=== PATIENT | male | born 1960 | race Caucasian/White ===

== ENCOUNTER → 2023-10-05 15:29 | Outpatient (REF) | payer SELFPAY | LOC: HWRAD 15:29 | PROVIDERS: ATTENDING PHYSICIAN Internal Medicine Cardiovascular Disease; FAMILY PHYSICIAN Family Medicine | DX: I10 Essential (primary) hypertension (principal); I34.0 Nonrheumatic mitral (valve) insufficiency | CPT/HCPCS: 75571 ==

== ENCOUNTER → 2023-12-17 12:37 | Outpatient (REF) | payer OTHER, SELFPAY | LOC: RAD 12:37 | PROVIDERS: ATTENDING PHYSICIAN Nurse Practitioner Family | DX: R05.3 Chronic cough (principal) | CPT/HCPCS: 71046 ==

== ENCOUNTER → 2024-05-10 15:00 | Outpatient (REF) | payer OTHER, SELFPAY | LOC: HWRCS 15:00 | PROVIDERS: ATTENDING PHYSICIAN Internal Medicine Cardiovascular Disease; FAMILY PHYSICIAN Family Medicine | DX: I10 Essential (primary) hypertension (principal); I34.0 Nonrheumatic mitral (valve) insufficiency | CPT/HCPCS: 93306 ==

== ENCOUNTER 2024-05-21 00:23 | Emergency (ER) | payer OTHER, SELFPAY ==
[2024-05-21 00:25] VITALS: BMI 26.4
[2024-05-21 00:32] VITALS: BP 101/68
[2024-05-21 00:47] LABS: % Basophils 0.8 % (0-2); % Eosinophils 2.5 % (0-6); % Immature Granulocytes 0.3 % (0-0.5); % Lymphocytes 52.2 % (20.5-51.1); % Monocytes 7.6 % (1.7-9.3); % Neutrophils 36.6 % (42.2-75.2); Absolute Basophils 0.1 10^3/uL (0-0.2); Absolute Eosinophils 0.3 10^3/uL (0-0.7); Absolute Lymphocytes 5.4 10^3/uL (1.2-3.4); Absolute Monocytes 0.8 10^3/uL (0.1-0.6); Absolute Neutrophils 3.8 10^3/uL (1.4-6.5); Hematocrit 39.2 % (39.0-52.0); Hemoglobin 13.6 g/dL (13.0-18.0); Mean Corp Hgb Conc. 34.7 g/dL (33.0-37.0); Mean Corpuscular Hgb 31.3 pg (27.0-31.0); Mean Corpuscular Volume 90.1 fL (80.0-94.0); Mean Platelet Volume 10.6 fL (7.4-10.4); Nucleated Red Blood Cells % 0 % (-); Platelet Count 230 10^3/uL (130-400); Red Blood Cell Count 4.35 10^6/uL (4.70-6.10); Red Cell Dist. Width 12.5 % (11.5-14.5); White Blood Cell Count 10.3 10^3/uL (4.8-10.8)
[2024-05-21 01:00] VITALS: BP 114/73
[2024-05-21 01:05] LABS: ALT (SGPT) 28 U/L (0-50); AST (SGOT) 33 U/L (17-59); Albumin 4.3 g/dl (3.5-5.0); Alkaline Phosphatase 55 U/L (38-126); Blood Urea Nitrogen 21 mg/dl (9-20); Calcium 9.2 mg/dl (8.4-10.2); Carbon Dioxide 24 mmol/L (22-30); Chloride 103 mmol/L (98-107); Estimated Creatinine Clearance 68 ml/min; Glucose 115 mg/dl (70-99); Potassium 3.5 mmol/L (3.5-5.1); Sodium 143 mmol/L (135-145); Total Bilirubin 0.2 mg/dl (0.2-1.3); Total Protein 6.5 g/dl (6.3-8.2); eGFR > 60.00
--- NOTE | 2024-05-21 01:09 | ED.GENMED ---
History of Present Illness
General
Chief Complaint: Fainting/Passed Out
Source: patient
Exam Limitations: none
Time Seen by Provider: 05/21/24 00:49
History of Present Illness
History of Present Illness:
63-year-old male presents via EMS from patient's friend's house. Patient was sitting at the table enjoying time with friends having several glasses of wine and smoking marijuana. He noticed his vision started to tunnel. He put his head down on
the table and was unresponsive for short period time. When he awoke he was pale and diaphoretic. There was no preceding chest pain or shortness of breath. He feels very dry at this point. He was orthostatic for EMS. He has a history of
hypertension hyperlipidemia. He is on metoprolol and lisinopril as well as atorvastatin no recent vomiting. No other complaints at this time
Phy Exam
Physical Exam
Physical Exam:
General: Well-appearing male no acute respiratory distress
HEENT: Normal cephalic atraumatic
Heart: Regular rate and rhythm no murmurs
Lungs: Clear no wheeze
Abdomen is soft nontender nondistended
Neurologic exam: Alert and oriented x 3 no facial asymmetry or slurred speech
Extremities: No cyanosis
Scores
[id number] Score for Afib Stroke Risk
Age in Years (65=0, 65-74=1, >/=75=2): <65
Sex (Female=+1): Male
Congestive Heart Failure History (Yes=+1): No
Hypertension History (Yes=+1): Yes
Stroke/TIA/Thromboembolism History (Yes=+2): No
Vascular Disease History (Yes=+1): No
Diabetes Mellitus (Yes=+1): No
Score: 1
Anticoagulation Recommendations: Consider anticoagulation (as validated in nonvalvular fib)
Course
Orders/Labs/Results
Orders:
Orders
05/21/24 00:25
Electrocardiogram (*1) Urgent
Reason for Study: Chest Pain
Cardiac Monitoring- Treatment ONCE
EKG- Treatment ONCE
IV Insert/Care/Rem.- Treatment PRN
O2 Therapy [RESP] Urgent
Titrate/Wean O2 to maintain O2 sat greater than (%): 90
Special Instructions: Maintain sats >/=90%
Pulse Ox/spot Check [RESP] Urgent
Quantity: 1
Special Instructions: ON ROOM AIR
05/21/24 00:37
Complete Blood Count/With Diff Urgent
Comprehensive Metabolic Panel Urgent
TSH Reflex To Free T4 Urgent
Comment: ADD ON
Troponin I Urgent
05/21/24 01:10
Add On- LAB Urgent
Tests Added?: tsh reflex to t4
05/21/24 02:00
Apixaban [Eliquis] 5 mg PO NOW STA
Abnormal Lab Results
05/21/24
00:37
RBC 4.35 L 10^6/uL
(4.70-6.10)
MCH 31.3 H pg
(27.0-31.0)
MPV 10.6 H fL
(7.4-10.4)
Absolute Lymphs (auto) 5.4 H 10^3/uL
(1.2-3.4)
Absolute Monos (auto) 0.8 H 10^3/uL
(0.1-0.6)
Neutrophils % 36.6 L %
(42.2-75.2)
Lymphocytes % 52.2 H %
(20.5-51.1)
BUN 21 H mg/dl
(9-20)
Glucose 115 H mg/dl
(70-99)
05/21/24 00:37
05/21/24 00:37
Vital Signs
Initial and Last Documented VS:
Initial Vital Signs
Temp
97.5 F
05/21/24 00:25
Last Documented Vital Signs
Temp Pulse Resp BP Pulse Ox
97.5 F 80 16 107/78 97
05/21/24 00:25 05/21/24 02:15 05/21/24 02:15 05/21/24 02:00 05/21/24 02:15
MDM/Problems Addressed
Differential Diagnosis Includes:
Syncope. Question dehydration versus related to substance use versus electrolyte abnormality versus arrhythmia
EKG reviewed and demonstrates rate controlled atrial fibrillation. Patient has not been diagnosed with atrial fibrillation in the past. Will hydrate and check labs including TSH.
I reviewed prior hospital records which includes an echocardiogram from 2 weeks ago which demonstrated an ejection fraction of 50 to 55% however there is moderate to severe mitral regurgitation.
*Critical Care Note
Total Time (30-74mins, 75-104mins- exclusive of procedures): Not Applicable
Update Note
Update Note:
Patient hydrated labs normal feeling better not orthostatic anymore upon standing but persist to be in atrial fibrillation. This is a new diagnosis for him however he is rate controlled. He will continue his metoprolol. I recommended he stay in
the hospital for evaluation secondary to new onset A-fib, syncope and known severe mitral regurgitation. Patient declined. He states he has been dealing with a mitral regurgitation for 35 years and has been stable when he gets his echocardiograms.
He wishes not to stay in the hospital. We will start him on Eliquis. He will follow-up with his asset protection officer as an outpatient
ED Attending Note
-
Portions of this chart may have been created with voice recognition software.� Occasional wrong word or��sound alike� substitutions may have occurred due to the inherent limitations of voice recognition software.
Discharge Plan
Departure
Patient Disposition: Home (Routine Discharge)
Date of Disposition: 05/21/24
Time of Disposition: 02:26
Patient with high blood pressure during this ER visit?: No
Discharge Problem:
Syncope, Atrial fibrillation
Instructions: Syncope (Fainting) (DC)
Prescriptions:
New
Eliquis 5 mg tablet
5 mg PO BID Qty: 60 0RF
No Action
prednisone 50 mg tablet
50 mg PO DAILY 4 Days Qty: 4 0RF
Referrals:
Rubio Melara MD [Family Provider] -
Activity Restrictions/Additional Instructions:
Continue metoprolol. Take Eliquis twice a day. Follow-up with your asset protection officer for next available appointment return here for worsening symptoms
Interventions
Interventions:
*Risk Screen - Suicide Last Done: 05/21/24 00:25
*General Assessment Last Done: 05/21/24 00:25
*Neglect/Abuse Screening Last Done: 05/21/24 00:25
ED- Fall Risk Assessment Last Done: 05/21/24 00:32
*ED COVID-19 Vaccine History Last Done: 05/21/24 00:49
ED- Cardiac Assessment Last Done: 05/21/24 00:45
ED- Neurological Assessment Last Done: 05/21/24 00:45
Discharge Date and Time
Print Language: TELUGU
[2024-05-21 01:17] LABS: Troponin I < 0.012 ng/ml
[2024-05-21 02:00] VITALS: BP 107/78
[2024-05-21 02:10] LABS: TSH Reflex To Free T4 2.94 uIU/ml (0.47-4.68)
[2024-05-21] MEDS: ELIQUIS 5 MG PO (02:16)
== END 2024-05-21 02:41 | disposition home or self-care (01) ==
LOC: EMR 00:23
PROVIDERS: Emergency Medicine; EMERGENCY PHYSICIAN Student in an Organized Health Care Education/Training Program; FAMILY PHYSICIAN Family Medicine
DX: R55 Syncope and collapse (principal); I48.91 Unspecified atrial fibrillation; I10 Essential (primary) hypertension; E78.5 Hyperlipidemia, unspecified
CPT/HCPCS: 99284; 80053; 84443; 84484; 85025; 93005

== ENCOUNTER 2025-07-31 10:16 | Day surgery (SDC) | payer MEDICARE, OTHER, SELFPAY ==
[2025-07-31 11:01] VITALS: BMI 25.5
--- NOTE | 2025-07-31 11:59 | ITS.CL.CARDI ---
[facility] - Cardioversion
Cardioversion
Procedure Report:
Date of Procedure: 07/31/25
Procedure: Cardioversion
Indication: Symptomatic atrial fibrillation
Performing Physician: Jose Lo MD
Technique: The patient was brought to the holding area. Signed informed consent was obtained. A time out was called and performed. The patient was anesthetized by the anesthesia service. Anticoagulation status was reviewed and appropriate. R2 pads
were placed anteriorly and posteriorly. After HUMBERTO revealed no SARAH thrombus, a 200 J synchronized biphasic shock restored normal sinus rhythm without significant bradycardia. There were no complications.
Conclusion: Uncomplicated cardioversion from atrial fibrillation to sinus rhythm.
Recommendation: Routine post cardioversion care. Continue detention anticoagulation.
== END 2025-07-31 12:45 | disposition home or self-care (01) ==
LOC: CATH 10:16
PROVIDERS: ATTENDING PHYSICIAN Internal Medicine Cardiovascular Disease; FAMILY PHYSICIAN Family Medicine; OTHER PHYSICIAN Internal Medicine Cardiovascular Disease
DX: I48.19 Other persistent atrial fibrillation (principal); I34.0 Nonrheumatic mitral (valve) insufficiency; Z79.01 Long term (current) use of anticoagulants; I08.8 Other rheumatic multiple valve diseases; I10 Essential (primary) hypertension; E78.00 Pure hypercholesterolemia, unspecified; Z79.82 Long term (current) use of aspirin
CPT/HCPCS: 93312; 93320; 93325; 92960; 93005